=== PATIENT | male | born 1980 | race Caucasian/White ===

== ENCOUNTER 2017-02-25 15:36 | Emergency (ER) | payer BC, OTHER ==
[2017-02-25 15:50] VITALS: BP 145/93
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
== END 2017-02-25 16:11 | disposition home or self-care (01) ==
LOC: ER 15:36
DX: M79.662 Pain in left lower leg (principal); V44.5XXA Car driver injured in collision with heavy transport vehicle or bus in traffic accident, initial encounter; Y93.9 Activity, unspecified; Y92.410 Unspecified street and highway as the place of occurrence of the external cause